=== PATIENT | female | born 2000 | race Caucasian/White ===

== ENCOUNTER 2024-06-21 10:38 | Inpatient (IN) | payer OTHER ==
[~2024-06-21] VITALS: Ht 182.9 cm; Wt 83.8 kg
[2024-06-21 12:12] LABS: HEMATOCRIT 38.1 % (36.0-47.0); HEMOGLOBIN 13.2 g/dl (12.0-15.5); MEAN CORPUSCULAR HEMOGLOBIN 31.2 pg (27.0-33.0); MEAN CORPUSCULAR HGB CONC 34.6 g/dl (32.0-36.5); MEAN CORPUSCULAR VOLUME 90.1 fl (80.0-96.0); PLATELET COUNT, AUTOMATED 216 10^3/uL (150-450); RED BLOOD COUNT 4.23 10^6/uL (4.00-5.40); WHITE BLOOD COUNT 8.3 10^3/uL (4.0-10.0)
[2024-06-21 12:42] LABS: AMPHETAMINES LEVEL URINE NEGATIVE (NEGATIVE); BARBITURATES URINE NEGATIVE (NEGATIVE); BENZODIAZEPINES URINE NEGATIVE (NEGATIVE); COCAINE METABOLITE URINE NEGATIVE (NEGATIVE)
[2024-06-21 12:43] LABS: CANNABINOIDS URINE NEGATIVE (NEGATIVE); METHADONE URINE NEGATIVE (NEGATIVE); OPIATES URINE NEGATIVE (NEGATIVE); PHENCYCLIDINE URINE NEGATIVE (NEGATIVE)
[2024-06-21 12:45] LABS: ETHYL ALCOHOL (ETHANOL) 0.005 % (0.000-0.010); HCG, SERUM QUALITATIVE NEGATIVE (NEGATIVE)
[2024-06-21 12:47] LABS: ALBUMIN 3.8 G/DL (3.2-5.2); ALKALINE PHOSPHATASE 66 U/L (35-104); ALT/SGPT 24 U/L (7.0-40); AST/SGOT 15 U/L (<34); BILIRUBIN,DIRECT 0.2 MG/DL (<0.4); BILIRUBIN,TOTAL 0.8 MG/DL (0.3-1.2); BLOOD UREA NITROGEN 11 MG/DL (9-23); CALCIUM LEVEL 9.4 MG/DL (8.5-10.1); CARBON DIOXIDE LEVEL 29 MMOL/L (20-31); CHLORIDE LEVEL 102 MMOL/L (98-107); CREATININE FOR GFR 0.76 MG/DL (0.55-1.30); GLOMERULAR FILTRATION RATE > 90.0 (>60); GLUCOSE, FASTING 88 MG/DL (60-100); POTASSIUM SERUM 4.8 MMOL/L (3.5-5.1); SALICYLATE LEVEL < 3.0 MG/DL (<30); SODIUM LEVEL 137 MMOL/L (136-145); THYROID STIMULATING HORMONE 1.057 uIU/ML (0.55-4.78); TOTAL PROTEIN 7.1 G/DL (5.7-8.2)
[2024-06-21] MEDS ORDERED: ESTR2TAB3 PO (14:16)
[2024-06-21] MEDS ORDERED: PROG1CAP8 PO (14:16)
[2024-06-21] MEDS ORDERED: MELA5TAB7 PO (14:16)
[2024-06-21] MEDS ORDERED: TRAZ1TAB10 PO (14:16)
[2024-06-21] MEDS ORDERED: SPIR100T3 PO (14:17)
[2024-06-21] MEDS ORDERED: HOME MED LIST COMPLETE! XX SCH (14:20)
[2024-06-21] MEDS: IBUPROFEN 600MG TAB PO PRN (16:42)
[2024-06-21] MEDS: traZODone 50 MG TAB PO ONE (22:25)
[2024-06-21] MEDS: estradioL 1 MG TAB PO ONE (22:25)
[2024-06-21] MEDS: SPIRONOLACTONE 50 MG TAB PO ONE (22:25)
[2024-06-22 08:39] VITALS: BP 130/64; TEMP 97.1; O2SAT 97
[2024-06-22] MEDS ORDERED: MAALOX 30 ML SUSP *UDC PO PRN (09:45)
[2024-06-22] MEDS ORDERED: IBUPROFEN 400MG TAB PO PRN (09:45)
[2024-06-22] MEDS ORDERED: traZODone 50 MG TAB PO PRN (09:45)
[2024-06-22] MEDS ORDERED: diphenhydrAMINE 25MG CAP PO PRN (09:45)
[2024-06-22] MEDS ORDERED: OLANZapine 5 MG TAB PO PRN (09:45)
[2024-06-22] MEDS ORDERED: MOM 30ML SUSPENSION UDC PO PRN (09:45)
[2024-06-22] MEDS: estradioL 1 MG TAB PO SCH (10:26)
[2024-06-22] MEDS: SPIRONOLACTONE 50 MG TAB PO SCH (10:26)
[2024-06-22] MEDS: traZODone 50 MG TAB PO PRN (20:36)
[2024-06-23 06:34] VITALS: BP 107/58; TEMP 97.7; O2SAT 98
[2024-06-23] MEDS: PARoxetine 10MG TABLET PO SCH (11:10)
[2024-06-23 15:36] VITALS: BP 140/76; TEMP 97.6; O2SAT 96
[2024-06-24 06:43] VITALS: BP 125/57; TEMP 97; O2SAT 98
[2024-06-24 14:18] VITALS: BP 145/72; TEMP 97.9; O2SAT 98
[2024-06-25 06:48] VITALS: BP 107/57; TEMP 97.9; O2SAT 97
[2024-06-25] MEDS: ACETAMINOPHEN 325 MG TAB PO PRN (09:22)
[2024-06-25] MEDS ORDERED: PARO5TAB PO (12:18)
== END 2024-06-25 14:23 | disposition home or self-care (01) | DRG 880 ==
LOC: M ED 10:38 → M ED INP 14:56 → M PSY 06-22 08:37
PROVIDERS: ADMIT Psychiatry & Neurology Psychiatry; ATTEND Psychiatry & Neurology Psychiatry
DX: F41.1 Generalized anxiety disorder (principal); R45.851 Suicidal ideations; F39 Unspecified mood [affective] disorder; M54.9 Dorsalgia, unspecified; G89.29 Other chronic pain; F17.200 Nicotine dependence, unspecified, uncomplicated; Z79.890 Hormone replacement therapy; Z79.899 Other long term (current) drug therapy; Z91.018 Allergy to other foods; Z88.8 Allergy status to other drugs, medicaments and biological substances; Z91.51 Personal history of suicidal behavior